=== PATIENT | male | born 1945 | race Caucasian/White ===

== ENCOUNTER 2017-04-05 08:14 | Day surgery (SDC) | payer MEDICARE, BC ==
[~2017-04-05 08:14] MED LIST: Bupivacaine 0.25%/EPINEPHrine 1:200,000 10 ML SDV ONE; Dexamethasone/Tobramycin 0.1-0.3% Ophth Oint 3.5 GM Tube ONE
[2017-04-05] MEDS ORDERED: Bupivacaine 0.25%/EPINEPHrine 1:200,000 10 ML SDV INJECT ONE (09:00)
[2017-04-05] MEDS ORDERED: Lactated Ringers 1,000 ML IV SCH (09:00)
[2017-04-05] MEDS ORDERED: ceFAZolin 2 GM in Premix Bag 1 BAG IV ONE (09:00)
[2017-04-05] MEDS ORDERED: Acetaminophen/HYDROcodone 325-5 MG Tab PO PRN (09:00)
[2017-04-05] MEDS ORDERED: Dexamethasone/Tobramycin 0.1-0.3% Ophth Oint 3.5 GM Tube EYEBOTH ONE (09:00)
--- NOTE | 2017-04-05 09:14 | PCM.PREANE ---
Preanesthetic Assessment - Anesthesia/Transfusion/Family Hx Anesthesia History: Prior Anesthesia Without Reaction Transfusion History: No Prior Transfusion(s) - Review of Systems General: No Symptoms Pulmonary: No Symptoms Cardiovascular: No Symptoms Gastrointestinal: No symptoms Neurological: No Symptoms Other: Reports: None - Physical Assessment NPO Status Date: 04/04/17 O2 Sat by Pulse Oximetry: 95 Respiratory Rate: 16 Vital Signs: Last Vital Signs Temp 37.4 C 04/05/17 08:42 Pulse 73 04/05/17 08:42 Resp 16 04/05/17 08:42 BP 175/103 H 04/05/17 08:42 Pulse Ox 95 04/05/17 08:42 Height: 1.85 m Weight: 124.284 kg ASA Class: 2 Mental Status: Alert & Oriented x3 Dentition: Reports: Normal Dentition ROM/Head Extension: Full Lungs: Clear to auscultation, Normal respiratory effort Cardiovascular: Regular Rate, Regular Rhythm - Allergies Allergies/Adverse Reactions: Allergies Allergy/AdvReac Type Severity Reaction Status Date / Time No Known Allergies Allergy Verified 04/02/17 11:45 - Anesthesia Plan Pre-Op Medication Ordered: None - Acknowledgements Anesthesia Type Planned: MAC Pt an Appropriate Candidate for the Planned Anesthesia: Yes Alternatives and Risks of Anesthesia Discussed w Pt/Guardian: Yes Pt/Guardian Understands and Agrees with Anesthesia Plan: Yes Additional Comments: PMH: htn and AUSTYN, PreAnesthesia Questionnaire HEENT History: Reports: Allergic Rhinitis, Other (See Below) Other HEENT History: wears glasses Cardiovascular History: Reports: Hypertension Respiratory History: Reports: Sleep Apnea Other Respiratory History: uses CPAP Gastrointestinal History: Reports: None Endocrine/Metabolic History: Reports: Obesity/BMI 30+ - Past Surgical History Head Surgeries/Procedures: Reports: None GI Surgical History: Reports: Colonoscopy, Hernia, Inguinal - SUBSTANCE USE Smoking Status *Q: Never Smoker Tobacco Use Within Last Twelve Months: No Days Per Week of Alcohol Use: 7 Number of Drinks Per Day: 2 Total Drinks Per Week: 14 Recreational Drug Use History: No - HOME MEDS Home Medications: Home Meds Hydrochlorothiazide 25 mg PO DAILY 04/02/17 [History] Krill/Om-3/DHA/EPA/Phospho/Ast [[place]-3 Krill Oil 300 mg Sfgl] 1 tab PO DAILY [History] Loratadine [Allergy] 10 mg PO DAILY 04/02/17 [History] Multivitamin [Multivitamins] 1 tab PO DAILY 04/02/17 [History] Verapamil [Calan SR] 180 mg PO BID 04/02/17 [History] Vit A/Vit C/Vit E/Zinc/Copper [Preservision] 1 tab PO DAILY 04/02/17 [History] - CURRENT (IN HOUSE) MEDS Current Meds: Current Medications Hydrocodone Bitart/Acetaminophen ([place]air 325-5 Mg) 1 tab PO Q4H PRN PRN Reason: Pain Lactated Ringer's (Ringers, Lactated) 1,000 mls @ 125 mls/hr IV ASDIRECTED NATALIE Last Admin: 04/05/17 08:58 Dose: 125 mls/hr Cefazolin Sodium/Dextrose 2 gm (/ Premix) 50 mls @ 100 mls/hr IV ONETIME ONE Stop: 04/05/17 09:29 Discontinued Medications Bupivacaine HCl/Epinephrine Bitart (Marcaine 0.25%/Epinephrine 1:200,000) 20 ml INJECT ONETIME ONE Stop: 04/05/17 09:01 Bupivacaine HCl/Epinephrine Bitart (Marcaine 0.25%/Epinephrine 1:200,000) Confirm Administered Dose 20 ml .ROUTE .STK-MED ONE Stop: 04/05/17 07:43 Tobramycin/Dexamethasone (Tobradex Ophth Oint) 1 gm EYEBOTH ONETIME ONE Stop: 04/05/17 09:01 Tobramycin/Dexamethasone (Tobradex Ophth Oint) Confirm Administered Dose 3.5 gm .ROUTE .STK-MED ONE Stop: 04/05/17 07:43
[2017-04-05] MEDS ORDERED: Lidocaine 2% 5 ML SDV ONE (09:34)
[2017-04-05] MEDS ORDERED: Propofol 200 MG/20 ML SDV ONE (09:34)
[2017-04-05] MEDS ORDERED: Midazolam 1 MG/ML 2 ML SDV ONE (09:34)
[2017-04-05] MEDS ORDERED: fentaNYL 100 MCG/2 ML SDV ONE (09:34)
[2017-04-05] MEDS ORDERED: Ondansetron 4 MG/2 ML SDV ONE (09:40)
[2017-04-05] MEDS ORDERED: Bupivacaine 0.25%/EPINEPHrine 1:200,000 10 ML SDV ONE ×2 (10:57→11:14)
[2017-04-05] MEDS ORDERED: Lidocaine 1% 20 ML MDV ONE (11:14)
[2017-04-05] MEDS ORDERED: Lidocaine 1% with EPINEPHrine 1:100,000 20 ML MDV ONE (11:16)
--- NOTE | 2017-04-05 12:52 | PCM.POSTAN ---
POST ANESTHESIA ASSESSMENT - MENTAL STATUS Mental Status: alert, oriented - RESPIRATORY Respiratory Status: respiratory rate WNL, airway patent, O2 saturation stable - CARDIOVASCULAR CV Status: pulse rate WNL, blood pressure stable - GASTROINTESTINAL GI Status: no symptoms - PAIN Pain Score: 0 - POST OP HYDRATION Hydration Status: adequate & stable
--- NOTE | 2017-04-05 12:53 | PCM48HPAN ---
Post Anesthesia Note - EVALUATION WITHIN 48HRS OF ANESTHETIC Vital Signs in Normal Range: Yes Patient Participated in Evaluation: Yes Respiratory Function Stable: Yes Airway Patent: Yes Cardiovascular Function Stable: Yes Hydration Status Stable: Yes Pain Control Satisfactory: Yes Nausea and Vomiting Control Satisfactory: Yes Mental Status Recovered: Yes
[2017-04-05 13:58] VITALS: BP 160/92
--- NOTE | 2017-04-06 10:35 | PCM.OPNOTE ---
- General Post-Op/Procedure Note Date of Surgery/Procedure: 04/05/17 Operative Procedure(s): bilateral upper lid blepharoplasty for excess skin and bilatearl brow lift for ptosis. Pre Op Diagnosis: visual osbtruction due to brow ptosis and dermatochalasis bilaterally Post-Op Diagnosis: Same Anesthesia Technique: Local, MAC Primary Surgeon: Rosi Joyner Pest Control Supervisor: Freya Roberts Complications: None Condition: Good Free Text/Narrative:: [id number]
--- NOTE | 2017-04-06 15:14 | OR ---
SURGEON: BRENDON LOPEZ MD DATE OF PROCEDURE: 04/05/2017 PREOPERATIVE DIAGNOSES: 1. 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 2. Bilateral brow ptosis causing visual obstruction. POSTOPERATIVE DIAGNOSES: 1. 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 2. Bilateral brow ptosis causing visual obstruction. PROCEDURES: 1. Bilateral brow lift for visual obstruction. 2. Bilateral upper lid blepharoplasty for excess skin weighing down lids. [employer]: VIKAS Nogueira INDICATIONS: Mr. Cordero is a 71-year-old gentleman with significant visual obstruction. He unfortunately has two things contributing to this including brow ptosis and upper lid skin excess. Risks and benefits of direct brow excision for brow lift and direct excision of upper eyelid skin for blepharoplasty were discussed with him and he is in agreement to proceed. Risks were including, but not limited to, bleeding, infection, damage to underlying or overlying structures, possible need for future interventions and possible scarring. PROCEDURE IN DETAIL: After informed consent was obtained and placed on the chart, the patient was brought to the operating theater in supine position. After adequate local MAC anesthetic was obtained, the area was prepped and draped in normal fashion using a Betadine cleansing solution. Once adequately prepped and draped, attention was then paid to the brow first. A 1 cm elliptical excision was made in the area just 1 cm superior to the brow for direct excision. This was camouflaged in a pre-existing rhytid. The excision was taken through the skin and subcutaneous tissues leaving the muscular layer and the neurovascular structures intact. Meticulous hemostasis was obtained and the skin was closed using deep 3-0 Monocryl stitches and a running subcuticular Monocryl for the skin. It was dressed with Steri-Strips. Once completed, attention was then paid to the upper eyelids. These were marked first for appropriate skin excision after brow adjustment and the area was marked for the elliptical standard excision. A 0.25% Marcaine with epinephrine and 1% lidocaine were then injected into the area for meticulous pain control and hemostasis. The skin was then excised in an elliptical fashion using a 15 blade. Cautery was used to meticulously hemostasis the skin edges of the muscle underneath for contraction. Once this was completed, the skin was then closed with deep 4-0 Monocryl stitches and a running 6-0 Prolene for the skin. This was Steri-Striped in place and the skin incision was dressed with TobraDex ointment. The patient tolerated this well and all counts and needles were correct at the end of the case. FOLLOWUP INSTRUCTIONS: The patient will see us in clinic in one week for suture removal sooner if any problems, questions, or concerns. He tolerated this well and was given a prescription for pain control. CHRISTA / CARLOS /[id number] MTDD
== END 2017-04-05 13:20 | disposition home or self-care (01) ==
LOC: MW.SDS 08:14
PROVIDERS: ATTEND Plastic Surgery
PROC: 080PXZZ Alteration of Left Upper Eyelid, External Approach (ICD-10-PCS; principal; 2017-04-05)
PROC: 080NXZZ Alteration of Right Upper Eyelid, External Approach (ICD-10-PCS; 2017-04-05)
PROC: 0W020ZZ Alteration of Face, Open Approach (ICD-10-PCS; 2017-04-05)
DX: H02.831 Dermatochalasis of right upper eyelid (principal); H02.834 Dermatochalasis of left upper eyelid; H02.403 Unspecified ptosis of bilateral eyelids; I10 Essential (primary) hypertension; G47.33 Obstructive sleep apnea (adult) (pediatric); Z99.89 Dependence on other enabling machines and devices; Z98.890 Other specified postprocedural states; Z79.899 Other long term (current) drug therapy
CPT/HCPCS: 15823; 67900; A9270; J2250; J2405; J3010; J7120; 00103; J2704